=== PATIENT | male | born 1960 | race Caucasian/White ===

== ENCOUNTER 2019-02-05 07:57 | Emergency (ER) | payer BC, OTHER ==
[~2019-02-05] VITALS: Ht 188 cm; Wt 71.8 kg
[2019-02-05 08:04] VITALS: BP 145/104
[2019-02-05] MEDS ORDERED: METH500T PO (09:09)
[2019-02-05] MEDS ORDERED: METH4TAB3 PO (09:09)
== END 2019-02-05 09:37 | disposition home or self-care (01) ==
LOC: ER 07:57
DX: M54.5 Low back pain (principal); G89.29 Other chronic pain; Z88.8 Allergy status to other drugs, medicaments and biological substances; Z79.899 Other long term (current) drug therapy; Z60.2 Problems related to living alone
CPT/HCPCS: 99283